=== PATIENT | male | born 1985 | race Caucasian/White ===

== ENCOUNTER 2017-06-24 08:13 | Emergency (ER) | payer BC ==
[2017-06-24] MEDS ORDERED: TORADOL 30 MG VIAL ONE (08:14)
[2017-06-24] MEDS ORDERED: NS 1000 ML 1,000 ML ONE (08:14)
[2017-06-24] MEDS ORDERED: TORADOL 30 MG VIAL IVP ONE (08:20)
[2017-06-24] MEDS ORDERED: NS 1000 ML 1,000 ML IV ONE (08:20)
[2017-06-24] MEDS ORDERED: MORPHINE SULFATE INJ 4 MG IVP ONE (08:23)
[2017-06-24] MEDS ORDERED: MORPHINE SULFATE INJ 4 MG ONE (08:24)
--- NOTE | 2017-06-24 08:26 | DR.GENAD ---
HPI - Complaint/Symptoms Chief Complaint Doctors Comments: Patient presetned to the ED with complaint of left flank pain. He states that he has had kindey stones in the past and this pain is very similar. He denies fever or vomiting but admits to nausea. PMH - PMH Past Surgical History: No Surgical History: Unknown - Family History Family Medical History: Coronary Artery Disease - Social History Do you use any recreational Drugs:: No ROS - Review of Systems Eyes: No Symptoms Reported ENTM: No Symptoms Reported Respiratoy: No Symptoms Reported Cardiovascular: No Symptoms Reported Gastrointestinal/Abdominal: No Symptoms Reported Genitourinary: No Symptoms Reported Neurological: No Symptoms Reported Musculoskeletal: Back (left flank pain) Integumentary: No Symptoms Reported Hematologic/Lymphatic: No Symptoms Reported Endocrine: No Symptoms Reported Psychiatric: No Symptoms Reported All Other Systems: Reviewed and Negative PE - Vital Signs Vitals: Temperature 98.0 F Pulse Rate 118 Respiratory Rate 22 Blood Pressure [Right Arm] 145/70 Blood Pressure 132/84 O2 Sat by Pulse Oximetry 98 - General Limitations: No Limitations General Appearance: Alert, In Distress - Head Head Exam: Normal Inspection, Atraumatic - Eyes Eye exam: Normal Appearance, PERRL, EOMI - ENT ENT Exam: Normal Exam External Ear Exam: Normal External Inspection TM/Canal Exam: Bilateral Normal Nose Exam: Normal Nose Exam Mouth Exam: Normal Inspection Throat Exam: Normal Inspection - Neck Neck Exam: Normal Inspection, Full ROM - Chest Chest Inspection: Normal Inspection - Respiratory Respiratory Exam: Normal Lung Sounds Bilat Respiratory Exam: Bilateral Clear to Auscultation - Cardiovascular Cardiovascular Exam: Regular Rate, Normal Rhythm - Abdominal Exam Abdominal Exam: Normal Inspection Abdominal Tenderness: negative: RUQ, RLQ, LUQ, LLQ, Epigastrium, Suprapubic, Diffuse, Mild, Moderate, Severe, Other - Extremities Extremities Exam: Normal Inspection, Full ROM - Back Back Exam: Tenderness, (L) CVA Tenderness - Neurologic Neurological Exam: Alert, Oriented X3, CN II-XII Intact - Psychiatric Psychiatric Exam: Normal Affect, Normal Mood - Skin Skin Exam: Warm, Dry, Intact, Normal Color Course - Reevaluation 1st: Improved - Education/Counseling Educated On: Treatment, Diagnosis, Prognosis, Needs for Follow Up ROR - Labs Reviewed Result Diagrams: 06/24/17 08:37 06/24/17 08:37 Laboratory: WBC 5.1 X10^3/uL (3.6-10.0) 06/24/17 08:37 RBC 5.50 X10^6/uL (4.7-6.0) 06/24/17 08:37 Hgb 15.6 g/dL (13.5-18.0) 06/24/17 08:37 Hct 45.6 % (42.0-54.0) 06/24/17 08:37 MCV 82.9 fL (80.0-100.0) 06/24/17 08:37 MCH 28.4 pg (27.0-34.0) 06/24/17 08:37 MCHC 34.2 g/dL (33.0-35.0) 06/24/17 08:37 RDW 13.9 % (11.6-16.5) 06/24/17 08:37 Plt Count 181 X10^3/uL (150.0-450.0) 06/24/17 08:37 MPV 9.1 fL (7.4-11.0) 06/24/17 08:37 Neut % 72.0 % (42.0-75.0) 06/24/17 08:37 Lymph % 18.4 % (21.0-51.0) L 06/24/17 08:37 Bradley % 8.7 % (0.0-13.0) 06/24/17 08:37 Eos % 0.6 % (0.9-2.9) L 06/24/17 08:37 Baso % 0.3 % (0.2-1.0) 06/24/17 08:37 Neut # 3.6 x10^3/uL (2.2-4.8) 06/24/17 08:37 Lymph # 0.9 X10^3/uL (1.3-2.9) L 06/24/17 08:37 Bradley # 0.4 x10^3/uL (0.3-0.8) 06/24/17 08:37 Eos # 0.0 x10^3/uL (0.0-0.2) 06/24/17 08:37 Baso # 0.0 X10^3/uL (0.0-0.1) 06/24/17 08:37 Absolute Nucleated RBC 0.1 /100WBC 06/24/17 08:37 Sodium 138 mmol/L (136-145) 06/24/17 08:37 Corrected Sodium 140 mmol/L (136-145) 06/24/17 08:37 Potassium 3.9 mmol/L (3.5-5.1) 06/24/17 08:37 Chloride 104 mmol/L (98-107) 06/24/17 08:37 Carbon Dioxide 23.8 mmol/L (21-32) 06/24/17 08:37 BUN 14 mg/dL (7-18) 06/24/17 08:37 Creatinine 1.24 mg/dL (0.70-1.30) 06/24/17 08:37 Est GFR (MDRD) Af Amer > 60 (>60) 06/24/17 08:37 Est GFR (MDRD) Non-Af > 60 (>60) 06/24/17 08:37 Glucose 191 mg/dL (65-99) H 06/24/17 08:37 Calcium 8.0 mg/dL (8.5-10.1) L 06/24/17 08:37 Corrected Calcium TNP 06/24/17 08:37 Total Bilirubin 0.30 mg/dL (0.2-1.0) 06/24/17 08:37 AST 32 Units/L (15-37) 06/24/17 08:37 ALT 87 Units/L (12-78) H 06/24/17 08:37 Alkaline Phosphatase 63 Units/L (46-116) 06/24/17 08:37 Total Protein 6.8 g/dL (6.4-8.2) 06/24/17 08:37 Albumin 3.5 g/dL (3.4-5.0) 06/24/17 08:37 Globulin 3.3 g/dL (2.5-4.5) 06/24/17 08:37 Albumin/Globulin Ratio 1.1 Ratio (1.1-2.1) 06/24/17 08:37 - XRAY XRAY Interpreted by: Radiologist (3 mm mildly obstructing distal left ureteral calculus located at the ureterovesical junction. Nonobstructing 1.5mm left lower pole renal calculus. Diffuse fatty infiltration of the liver) - Diagnosis Discharge Problem: Fatty liver Hydronephrosis Qualifiers: Hydronephrosis type: with ureteropelvic junction obstruction Qualified Code(s) : Q62.11 - Congenital occlusion of ureteropelvic junction - Discharge Plan Condition: Stable - Follow ups/Referrals Follow ups/Referrals: Domenico Palmer [Primary Care Provider] - 3 days - Instructions
[2017-06-24 08:32] VITALS: BP 132/84; BMI 38.7
[2017-06-24 08:43] LABS: BASOPHILS % (AUTO) 0.3 % (0.2-1.0); EOSINOPHILS % (AUTO) 0.6 % (0.9-2.9); HEMATOCRIT 45.6 % (42.0-54.0); HEMOGLOBIN 15.6 g/dL (13.5-18.0); LYMPHOCYTES # (AUTO) 0.9 X10^3/uL (1.3-2.9); LYMPHOCYTES % (AUTO) 18.4 % (21.0-51.0); MEAN CORPUSCULAR HEMOGLOBIN 28.4 pg (27.0-34.0); MEAN CORPUSCULAR HGB CONC 34.2 g/dL (33.0-35.0); MEAN CORPUSCULAR VOLUME 82.9 fL (80.0-100.0); MEAN PLATELET VOLUME 9.1 fL (7.4-11.0); MONOCYTES # (AUTO) 0.4 x10^3/uL (0.3-0.8); MONOCYTES % (AUTO) 8.7 % (0.0-13.0); NEUTROPHILS # (AUTO) 3.6 x10^3/uL (2.2-4.8); PLATELET COUNT 181 X10^3/uL (150.0-450.0); RED CELL DISTRIBUTION WIDTH 13.9 % (11.6-16.5); WHITE BLOOD COUNT 5.1 X10^3/uL (3.6-10.0)
[2017-06-24 08:55] LABS: ALANINE AMINOTRANSFERASE 87 Units/L (12-78); ALBUMIN 3.5 g/dL (3.4-5.0); ALKALINE PHOSPHATASE 63 Units/L (46-116); ASPARTATE AMINO TRANSFERASE 32 Units/L (15-37); BLOOD UREA NITROGEN 14 mg/dL (7-18); CARBON DIOXIDE 23.8 mmol/L (21-32); CHLORIDE 104 mmol/L (98-107); COR NA(FOR HYPERGLY) 140 mmol/L (136-145); CREATININE 1.24 mg/dL (0.70-1.30); SODIUM 138 mmol/L (136-145); TOTAL PROTEIN 6.8 g/dL (6.4-8.2); eGFR BLACK RACES > 60 (>60); eGFR NON BLACK RACES > 60 (>60)
--- NOTE | 2017-06-24 09:21 | CT ---
HISTORY: Left flank pain Study: CT abdomen pelvis without contrast Comparison: 05/10/2015 Technique: Axial noncontrast images with coronal and sagittal reformats. Dose reduction procedures we re used with mA/kv adjusted for body size. Findings: The lung bases are clear. The liver is normal in size and configuration and without focal space-occup rey disease at least to the limitations of an unenhanced examination. The echogenicity of the hepati c parenchyma is decreased suggestive of fatty infiltration. There is a question of some tiny calculi within the gallbladder. This could be confirmed or excluded sonographically. The spleen, adrenal glan ds, and pancreas are within normal limits to the limitations of an unenhanced examination. The right kidney is unobstructed. No right renal or ureteral calculi are identified. There is mild left-sided h ydroureteronephrosis proximal to a 3 mm calculus located at the left ureterovesical junction. There i s also 1.5 mm nonobstructing left lower pole renal calculus present. No enlarged intraperitoneal or r etroperitoneal lymphadenopathy is identified. The appendix is normal. There are no findings suggestiv e of diverticulitis or colitis. Examination of the pelvis demonstrated no evidence for pelvic masses, pelvic fluid, or pelvic lymphadenopathy. No bladder abnormality is identified. No lytic or blastic s keletal lesions are identified. IMPRESSION: 3 mm mildly obstructing distal left ureteral calculus located at the ureterovesical junction Nonobstructing 1.5 mm left lower pole renal calculus Diffuse fatty infiltration of the liver Possible cholelithiasis. This could be confirmed or excluded sonographically Reported By:
[2017-06-24] MEDS ORDERED: NORCO 7.5/325 MG TAB ONE (10:06)
[2017-06-24] MEDS ORDERED: NORCO 7.5/325 MG TAB PO ONE (10:10)
== END 2017-06-24 10:11 | disposition home or self-care (01) ==
LOC: ER 08:37
DX: K76.0 Fatty (change of) liver, not elsewhere classified (principal); Q62.11 Congenital occlusion of ureteropelvic junction
CPT/HCPCS: 36415; 74176; 80053; 85025; 96365; 96374; 96375; 99283; A4222; J1885; J2270